=== PATIENT | male | born 1950 | race Caucasian/White ===

== ENCOUNTER 2018-01-30 10:19 | Inpatient (IN) | payer MEDICARE ==
[~2018-01-30] VITALS: Ht 175.3 cm; Wt 87.2 kg
[2018-01-30] MEDS ORDERED: SODIUM CHLORIDE FLUSH 10ML SYR IVF ONE (10:30)
[2018-01-30] MEDS ORDERED: SODIUM CHLORIDE 0.9% 1,000ML IVBOLUS ONE ×3 (10:30→18:00)
[2018-01-30 10:52] LABS: MEAN CORPUSCULAR HEMOGLOBIN 31.7 pg (27.5-34.5); MEAN CORPUSCULAR HGB CONC 33.6 g/dL (33.2-36.2); MEAN CORPUSCULAR VOLUME 94.1 fL (81-97); MEAN PLATELET VOLUME 9.7 fL (7.4-10.4); PLATELET COUNT 242 x10^3/uL (130-400); RED BLOOD COUNT 5.44 x10^6/uL (4.38-5.82); RED CELL DISTRIBUTION WIDTH 14.3 % (9.4-14.8)
[2018-01-30 10:58] LABS: INTERNATIONAL NORMALIZED RATIO 1.09 (0.93-1.1); PROTHROMBIN TIME 11.3 Seconds (9.6-11.5)
[2018-01-30] MEDS ORDERED: PANTOPRAZOLE 80 MG in SODIUM CHLORIDE 0.9% 50 ML IVPB ONE (11:00)
[2018-01-30 11:02] LABS: ALANINE AMINOTRANSFERASE 24 U/L (12-78); ALBUMIN 3.1 g/dL (3.4-5.0); ANION GAP 23 mmol/L (5-15); CALCIUM 9.8 mg/dL (8.5-10.1); CHLORIDE 106 mmol/L (98-107); CREATININE 2.85 mg/dL (0.7-1.3)
[2018-01-30 11:05] LABS: ALKALINE PHOSPHATASE 51 U/L (45-117)
[2018-01-30 11:06] LABS: MD YES
[2018-01-30 11:12] LABS: TROPONIN I 0.027 ng/mL (0.000-0.045)
[2018-01-30] MEDS ORDERED: PANTOPRAZOLE 80 MG in SODIUM CHLORIDE 0.9% 100 ML IV SCH (11:30)
[2018-01-30 11:51] LABS: O2 FLOW 9 L/min; PH, VENOUS 7.144 pH (7.320-7.420)
[2018-01-30 12:00] LABS: <RBC MORPHOLOGY> NORMAL; BAND#(MANUAL) 2.78 x10^3/uL; BANDS%(MANUAL) 29 % (0-7); LYMPH#(MANUAL) 1.92 x10^3/uL (1-3.4); LYMPHS% (MANUAL) 20 % (22-44); METAMYELOCYTES# (MANUAL) 0.19 x10^3/uL (0-0); METAMYELOCYTES% (MANUAL) 2 % (0-1); MONOS#(MANUAL) 2.02 x10^3/uL (0.3-2.7); MONOS% (MANUAL) 21 % (2-9); REACTIVE LYMPHS # (MANUAL) 0.19 x10^3/uL (0-0); REACTIVE LYMPHS % (MANUAL) 2 % (0-0); SEGS% (MANUAL) 26 % (42-75)
[2018-01-30] MEDS ORDERED: CEFTRIAXONE PMX 1GM/50ML 50 ML IV ONE (12:00)
[2018-01-30 12:01] LABS: <PLATELET ESTIMATE> ADEQUATE; LARGE PLATELETS 1+
[2018-01-30] MEDS: D5%-0.45NACL+KCL 40MEQ 1,000 ML IV SCH ×2 (12:08→15:30)
[2018-01-30] MEDS ORDERED: LORazepam 2 MG/ML, 1ML ONE (12:10)
[2018-01-30] MEDS ORDERED: CEFTRIAXONE PMX 1GM/50ML 50 ML ONE (12:10)
[2018-01-30 12:12] LABS: ACETONE, SERUM Trace (10mg/dL) mg/dL (Negative)
[2018-01-30] MEDS ORDERED: METRONIDAZOLE PMX 500MG/100ML 100 ML IV ONE (12:30)
[2018-01-30] MEDS ORDERED: LORazepam 2 MG/ML, 1ML IVPush ONE (12:30)
[2018-01-30] MEDS ORDERED: MIDAZOLAM 1 MG/ML, 2ML ONE (13:33)
[2018-01-30] MEDS ORDERED: MIDAZOLAM 1 MG/ML, 5ML IVPush ONE (14:00)
[2018-01-30] MEDS ORDERED: DULO30CA2 PO (14:22)
[2018-01-30] MEDS ORDERED: AMLO10TA2 PO (14:22)
[2018-01-30] MEDS ORDERED: METRONIDAZOLE PMX 500MG/100ML 100 ML ONE (14:32)
[2018-01-30] MEDS ORDERED: BISACODYL 10 MG SUPP PR PRN ×2 (15:00→17:30)
[2018-01-30] MEDS ORDERED: morphine SULFATE 10 MG/ML, 1ML IVPush PRN (15:00)
[2018-01-30] MEDS ORDERED: ONDANSETRON 2MG/ML, 2ML IVPush PRN (15:00)
[2018-01-30] MEDS ORDERED: LACTATED RINGERS 1,000 ML IV SCH (15:00)
[2018-01-30] MEDS ORDERED: POLYETHYLENE GLYCOL 17 GM PACKET PO PRN (15:00)
[2018-01-30] MEDS ORDERED: DOCUSATE 100 MG CAPSULE PO PRN (15:00)
[2018-01-30] MEDS: PANTOPRAZOLE 80 MG in SODIUM CHLORIDE 0.9% 100 ML IV SCH (15:30)
[2018-01-30] MEDS ORDERED: CEFTRIAXONE PMX 2GM/50ML 50 ML IV SCH (16:00)
[2018-01-30] MEDS: NOREPINEPHRINE 4 MG in SODIUM CHLORIDE 0.9% 246 ML IV PRN ×2 (16:42→20:01)
[2018-01-30] MEDS ORDERED: PROPOFOL 100 ML IV PRN (17:01)
[2018-01-30] MEDS ORDERED: NOREPINEPHRINE 4 MG in SODIUM CHLORIDE 0.9% 246 ML IV PRN (17:01)
[2018-01-30] MEDS ORDERED: LACTULOSE 20 GM/30 ML UDC NG PRN (17:30)
[2018-01-30] MEDS ORDERED: SENNA/DOCUSATE TABLET NG PRN (17:30)
[2018-01-30] MEDS ORDERED: PHARMACY MAY ADJ FOR RENAL FX MC SCH (17:30)
[2018-01-30] MEDS ORDERED: ROCURONIUM 10 MG/ML,10ML ONE (17:30)
[2018-01-30] MEDS ORDERED: SENNOSIDES 8.8 MG/5 ML ORAL SOL NG PRN (17:30)
[2018-01-30] MEDS ORDERED: FENTANYL PF 100 MCG/2ML IVPush PRN (17:30)
[2018-01-30] MEDS ORDERED: PROPOFOL 10 MG/ML, 20ML ONE (17:30)
[2018-01-30] MEDS ORDERED: MIDAZOLAM 1 MG/ML, 5ML ONE (17:30)
[2018-01-30] MEDS: ALBUTEROL/IPRATROPIUM 2.5MG/0.5MG, 3 ML INLINE SCH ×2 (17:30→22:00)
[2018-01-30] MEDS ORDERED: LIDOCAINE-MPF 1%, 2ML ENDO PRN (17:30)
[2018-01-30] MEDS: METRONIDAZOLE PMX 500MG/100ML 100 ML IV SCH (17:35)
[2018-01-30] MEDS ORDERED: SODIUM CHLORIDE 0.9% 1,000 ML IV SCH (18:30)
[2018-01-30 18:52] LABS: MEAN CORPUSCULAR HEMOGLOBIN 32.2 pg (27.5-34.5); MEAN CORPUSCULAR VOLUME 94.7 fL (81-97); MEAN PLATELET VOLUME 9.8 fL (7.4-10.4); PLATELET COUNT 214 x10^3/uL (130-400); RED BLOOD COUNT 4.24 x10^6/uL (4.38-5.82); RED CELL DISTRIBUTION WIDTH 14.6 % (9.4-14.8)
[2018-01-30 19:10] LABS: MD YES
[2018-01-30 19:22] LABS: BAND#(MANUAL) 1.51 x10^3/uL; BANDS%(MANUAL) 29 % (0-7); LYMPH#(MANUAL) 0.99 x10^3/uL (1-3.4); LYMPHS% (MANUAL) 19 % (22-44); METAMYELOCYTES# (MANUAL) 0.16 x10^3/uL (0-0); METAMYELOCYTES% (MANUAL) 3 % (0-1); MONOS#(MANUAL) 0.57 x10^3/uL (0.3-2.7); MONOS% (MANUAL) 11 % (2-9); MYELOCYTES# (MANUAL) 0.05 x10^3/uL (0-0); MYELOCYTES% (MANUAL) 1 % (0-0); SEG#(MANUAL) 1.92 x10^3/uL (1.8-6.8); SEGS% (MANUAL) 37 % (42-75)
[2018-01-30 19:23] LABS: <PLATELET ESTIMATE> ADEQUATE; <RBC MORPHOLOGY> NORMAL; LARGE PLATELETS 1+
[2018-01-30 19:52] LABS: CULTURE INDICATED? YES; MICROSCOPIC INDICATED
[2018-01-30] MEDS ORDERED: VASOPRESSIN 100 UNIT in SODIUM CHLORIDE 0.9% 495 ML IV PRN (20:00)
[2018-01-30] MEDS ORDERED: FAMOTIDINE 20 MG/2 ML IV SCH (21:00)
[2018-01-30 22:10] VITALS: BP 83/60
[2018-01-30] MEDS: NOREPINEPHRINE 8 MG in SODIUM CHLORIDE 0.9% 242 ML IV PRN (22:10)
[2018-01-30] MEDS: SODIUM BICARBONATE 8.4% 150 MEQ in DEXTROSE 5% 1,000 ML IV SCH (22:11)
[2018-01-31] MEDS: METRONIDAZOLE PMX 500MG/100ML 100 ML IV SCH ×2 (00:02→08:13)
[2018-01-31] MEDS: ALBUTEROL/IPRATROPIUM 2.5MG/0.5MG, 3 ML INLINE SCH ×4 (02:25→14:00)
[2018-01-31 04:05] VITALS: BP 96/70
[2018-01-31] MEDS: SODIUM BICARBONATE 8.4% 150 MEQ in DEXTROSE 5% 1,000 ML IV SCH ×2 (04:20→14:17)
[2018-01-31] MEDS: NOREPINEPHRINE 8 MG in SODIUM CHLORIDE 0.9% 242 ML IV PRN ×2 (04:20→09:27)
[2018-01-31 04:34] LABS: MEAN CORPUSCULAR HEMOGLOBIN 31.9 pg (27.5-34.5); MEAN CORPUSCULAR HGB CONC 33.2 g/dL (33.2-36.2); MEAN CORPUSCULAR VOLUME 96.1 fL (81-97); MEAN PLATELET VOLUME 10.3 fL (7.4-10.4); PLATELET COUNT 188 x10^3/uL (130-400)
[2018-01-31 04:41] LABS: CHLORIDE 111 mmol/L (98-107)
[2018-01-31 04:51] LABS: ALANINE AMINOTRANSFERASE 428 U/L (12-78); ALBUMIN 2.2 g/dL (3.4-5.0); ALKALINE PHOSPHATASE 44 U/L (45-117); ANION GAP 20 mmol/L (5-15); BILIRUBIN,TOTAL 0.7 mg/dL (0.2-1.0); CREATININE 3.54 mg/dL (0.7-1.3); TOTAL PROTEIN 5.6 g/dL (6.4-8.2)
[2018-01-31] MEDS: PANTOPRAZOLE 80 MG in SODIUM CHLORIDE 0.9% 100 ML IV SCH (05:00)
[2018-01-31 05:36] LABS: MD YES
[2018-01-31 05:39] LABS: BANDS%(MANUAL) 38 % (0-7); LYMPH#(MANUAL) 1.84 x10^3/uL (1-3.4); LYMPHS% (MANUAL) 20 % (22-44); METAMYELOCYTES# (MANUAL) 0.28 x10^3/uL (0-0); METAMYELOCYTES% (MANUAL) 3 % (0-1); MONOS#(MANUAL) 1.38 x10^3/uL (0.3-2.7); MONOS% (MANUAL) 15 % (2-9); MYELOCYTES# (MANUAL) 0.09 x10^3/uL (0-0); MYELOCYTES% (MANUAL) 1 % (0-0); SEG#(MANUAL) 2.12 x10^3/uL (1.8-6.8); SEGS% (MANUAL) 23 % (42-75)
[2018-01-31 05:40] LABS: <PLATELET ESTIMATE> ADEQUATE; <RBC MORPHOLOGY> NORMAL; LARGE PLATELETS 1+
[2018-01-31] MEDS ORDERED: LINEZOLID PMX 600MG/300ML 300 ML IV SCH (08:30)
[2018-01-31] MEDS ORDERED: MICAFUNGIN 100 MG in SODIUM CHLORIDE 0.9% 100 ML IV SCH (08:30)
[2018-01-31] MEDS ORDERED: MEROPENEM 1 GM in SODIUM CHLORIDE 0.9% 100 ML IV SCH (08:30)
[2018-01-31] MEDS ORDERED: DULOXETINE 30 MG CAPSULE.DR PO SCH (09:00)
[2018-01-31] MEDS ORDERED: LACTATED RINGERS 1,000 ML IVBOLUS ONE (13:00)
[2018-01-31] MEDS ORDERED: SODIUM BICARBONATE 1 MEQ/ML, 50ML VIAL IVPush STA ×2 (14:11)
[2018-01-31] MEDS ORDERED: SODIUM BICARB 8.4%, 50ML SYRINGE IVPush STA ×3 (14:11→14:24)
[2018-01-31] MEDS ORDERED: EPINEPHRINE 1 MG/ML, 1ML ONE (14:12)
[2018-01-31] MEDS ORDERED: SODIUM BICARB 8.4%, 50ML SYRINGE ONE (14:13)
[2018-01-31] MEDS ORDERED: MIDAZOLAM 1 MG/ML, 2ML ONE (14:22)
[2018-01-31] MEDS ORDERED: FENTANYL PF 250 MCG/5ML ONE (14:22)
[2018-01-31] MEDS ORDERED: CALCIUM CHLORIDE 10%, 10ML SYR ONE (14:23)
[2018-01-31] MEDS ORDERED: SODIUM BICARBONATE 8.4% 150 MEQ in DEXTROSE 5% 1,000 ML IV SCH (14:26)
[2018-01-31] MEDS ORDERED: EPINEPHRINE 2 MG in SODIUM CHLORIDE 0.9% 248 ML IV PRN (14:30)
[2018-01-31] MEDS ORDERED: CALCIUM CHLORIDE 13.6 MEQ in SODIUM CHLORIDE 0.9% 100 ML IV ONE (14:30)
[2018-01-31] MEDS ORDERED: CALCIUM CHLORIDE 10%, 10ML SYR IVPush ONE (15:00)
[2018-01-31] MEDS ORDERED: LORazepam 2 MG/ML, 1ML IVPush PRN ×2 (15:30)
[2018-01-31] MEDS ORDERED: morphine SULFATE 10 MG/ML, 1ML IVPush PRN ×2 (15:30)
== END 2018-01-31 16:40 | disposition expired | DRG 871 ==
LOC: ED 12:33 → EDIP 12:34 → ED 12:58 → CCU 15:05
PROVIDERS: ADMIT Internal Medicine; ATTEND Internal Medicine
PROC: 05HN33Z Insertion of Infusion Device into Left Internal Jugular Vein, Percutaneous Approach (ICD-10-PCS; 2018-01-30)
PROC: 0T9B70Z Drainage of Bladder with Drainage Device, Via Natural or Artificial Opening (ICD-10-PCS; 2018-01-30)
PROC: 02HV33Z Insertion of Infusion Device into Superior Vena Cava, Percutaneous Approach (ICD-10-PCS; principal; 2018-01-31)
PROC: 5A1935Z Respiratory Ventilation, Less than 24 Consecutive Hours (ICD-10-PCS; 2018-01-31)
PROC: B548ZZA Ultrasonography of Superior Vena Cava, Guidance (ICD-10-PCS; 2018-01-31)
PROC: 0BH17EZ Insertion of Endotracheal Airway into Trachea, Via Natural or Artificial Opening (ICD-10-PCS; 2018-01-31)
DX: A41.9 Sepsis, unspecified organism (principal); J96.01 Acute respiratory failure with hypoxia; N17.0 Acute kidney failure with tubular necrosis; R65.21 Severe sepsis with septic shock; J69.0 Pneumonitis due to inhalation of food and vomit; E87.4 Mixed disorder of acid-base balance; K55.9 Vascular disorder of intestine, unspecified; Z99.11 Dependence on respirator [ventilator] status; J98.11 Atelectasis; J47.0 Bronchiectasis with acute lower respiratory infection; R00.1 Bradycardia, unspecified; K75.89 Other specified inflammatory liver diseases; E86.0 Dehydration; E83.39 Other disorders of phosphorus metabolism; E87.6 Hypokalemia; F12.90 Cannabis use, unspecified, uncomplicated; F17.210 Nicotine dependence, cigarettes, uncomplicated; F32.9 Major depressive disorder, single episode, unspecified; I10 Essential (primary) hypertension; K21.9 Gastro-esophageal reflux disease without esophagitis; K59.8 Other specified functional intestinal disorders; L40.9 Psoriasis, unspecified; Z96.653 Presence of artificial knee joint, bilateral; Z51.5 Encounter for palliative care; Z88.5 Allergy status to narcotic agent; F41.9 Anxiety disorder, unspecified
CPT/HCPCS: 36415; 36569; 36600; 70450; 71045; 74176; 76937; 77001; 80053; 80074; 80307; 81001; 82010; 82533; 82803; 83605; 83690; 83735; 84100; 84132; 84478; 84484; 85025; 85610; 86706; 86850; 86900; 86923; 87040; 87070; 87081; 87086; 87147; 87205; 93005; 94002; 94003; 94640; J0696; J2020; J2185; J2248; J2250; J2704; J3010; J7070; J7620; C1751; C9113; J1642; J2060; J2270; J3480; J7030; J7050; J7120